=== PATIENT | female | born 1945 ===

== ENCOUNTER → 2017-01-19 | Outpatient (CLI) | payer MEDICARE | LOC: SP 08:33 | PROVIDERS: ATTEND Surgery | DX: M79.606 Pain in leg, unspecified (principal) | CPT/HCPCS: 93970 ==

== ENCOUNTER → 2020-04-01 | Outpatient (CLI) | payer MEDICARE | LOC: OD 14:57 | PROVIDERS: ATTEND Otolaryngology | DX: J30.9 Allergic rhinitis, unspecified (principal) | CPT/HCPCS: 36415; 82785; 86003 ==